=== PATIENT | male | born 1945 | race Caucasian/White ===

== ENCOUNTER → 2022-07-14 | Emergency (ER) | payer OTHER ==
[~2022-07-14] MED LIST: ASPIRIN 325 MG TABLET ONE; ASPIRIN 325 MG TABLET PO ONE; FUROSEMIDE 40 MG/4 ML INJECTABLE VIAL IVPUSH ONE; FUROSEMIDE 40 MG/4 ML INJECTABLE VIAL ONE; MAGNESIUM SULF 50% (8.12 MEQ/2 ML-1 GM VIAL) IVPB ONE; MAGNESIUM SULFATE IN WATER 2 GM/50 ML IVPB IVPB ONE
[2022-07-14 19:07] LABS: HEMOGLOBIN 14.7 G/dL (11.7-16.9); MCH 27.3 pg (25.7-33.7); MCHC 33.4 g/dl (32.0-35.9); MEAN CELL VOLUME 81.7 fl (80-96); MEAN PLT VOLUME 10.5 fl (7.5-11.1); PLATELET COUNT 225.1 10^3/uL (134-434); RBC 5.38 10^6/uL (4.00-5.60); RDW 18.4 % (11.9-15.9)
[2022-07-14 19:09] VITALS: BMI 41.8
[2022-07-14 19:15] LABS: INR 1.58 (0.83-1.09); PROTHROMBIN TIME (PATIENT) 18.3 SEC (9.7-13.0)
[2022-07-14 19:22] LABS: ALBUMIN 3.3 g/dl (3.4-5.0); BILIRUBIN,TOTAL 2.1 mg/dl (0.2-1); CALCIUM 9.3 mg/dl (8.5-10); CREATININE 1.2 mg/dl (0.55-1.3); TOT PROT 6.4 g/dl (6.4-8.2)
[2022-07-14 19:31] LABS: PLATELET ESTIMATE ADEQUATE
[2022-07-15 00:26] VITALS: RESP 20
[2022-07-15 03:22] VITALS: BP 157/119; PULSE 120; TEMP 97.8
== END | disposition short-term general hospital (02) ==
LOC: FER 17:58
PROC: 3E033GC Introduction of Other Therapeutic Substance into Peripheral Vein, Percutaneous Approach (ICD-10-PCS; principal; 2022-07-14)
DX: I50.9 Heart failure, unspecified (principal)
CPT/HCPCS: 0241U-QW; 36415; 71046-TC-FY; 80053; 83880; 84484; 85027; 85610; 93005; 99285-25

== ENCOUNTER 2024-05-21 10:37 | Inpatient (IN) | payer OTHER ==
[2024-05-21] MEDS: SODIUM CHLORIDE 1,000 ML IV SCH (11:10)
[2024-05-21 11:35] LABS: INR 1.25 (0.83-1.09); PROTHROMBIN TIME (PATIENT) 14.2 SEC (9.7-13.0)
[2024-05-21 11:51] LABS: ALBUMIN 4.1 g/dl (3.4-5.0); BILIRUBIN,TOTAL 1.1 mg/dl (0.2-1); CALCIUM 9.5 mg/dl (8.5-10.1); CREATININE 0.9 mg/dl (0.6-1.3); POTASSIUM 3.7 mmol/L (3.5-5.1); TOT PROT 6.5 g/dl (6.4-8.2)
[2024-05-21] MEDS: ASPIRIN 81 MG CHEWABLE TABLETS PO ONE ×2 (13:24→14:01)
[2024-05-21 13:30] LABS: HEMATOCRIT 42.4 % (35.4-49); HEMOGLOBIN 14.3 G/dL (11.7-16.9); MCH 28.6 pg (25.7-33.7); MCHC 33.8 g/dl (32.0-35.9); MEAN CELL VOLUME 84.6 fl (80-96); MEAN PLT VOLUME 10.5 fl (7.5-11.1); PLATELET COUNT 134.5 10^3/uL (134-434); RBC 5.01 10^6/uL (4.00-5.60); RDW 14.5 % (11.9-15.9); WHITE BLOOD COUNT 7.7 10^3/uL (4.0-10.8)
[2024-05-21 13:53] LABS: CHOLESTEROL 148 mg/dL (50-200); HDL CHOLESTEROL 35 mg/dL (40-60); LDL CHOLESTEROL (ONLY DFH) 77 mg/dL (5-100)
[2024-05-21] MEDS ORDERED: ASPIRIN 81 MG CHEWABLE TABLETS ONE (13:54)
[2024-05-21 14:06] LABS: HIV INTERPRETATION NEGATIVE (NEGATIVE)
[2024-05-21 14:15] LABS: PLATELET ESTIMATE ADEQUATE
[2024-05-21 16:00] VITALS: BMI 34.3
[2024-05-21 18:34] VITALS: RESP 18
[2024-05-21] MEDS: INSULIN ASPART SLIDING SCALE (NOVOLOG) 1 VIAL SQ SCH (19:15)
[2024-05-21] MEDS: CARVEDILOL 25 MG TABLET (FP) PO SCH (22:46)
[2024-05-21] MEDS: ATORVASTATIN CA 80 MG TABLET (FP) PO SCH (22:46)
[2024-05-21] MEDS: SACUBITRIL/VALSARTAN 97 MG-103 MG TABLET PO SCH (22:47)
[2024-05-22 03:20] LABS: PH,URINE 6.5 (5.0-8.0); URINE APPEARANCE CLEAR; URINE BILIRUBIN NEGATIVE (NEGATIVE); URINE COLOR YELLOW; URINE GLUCOSE (UA) 3+ (NEGATIVE); URINE KETONE NEGATIVE (NEGATIVE); URINE LEUK ESTERASE NEGATIVE (NEGATIVE); URINE NITRITE NEGATIVE (NEGATIVE); URINE PROTEIN NEGATIVE (NEGATIVE)
[2024-05-22 05:01] VITALS: BP 129/80; PULSE 59; TEMP 97.9
[2024-05-22] MEDS ORDERED: EMPAGLIFLOZIN (JARDIANCE) 10 MG TABLET PO SCH (10:00)
[2024-05-22] MEDS: TAMSULOSIN HCL 0.4 MG CAP PO SCH (10:44)
[2024-05-22] MEDS: CLOPIDOGREL BISULFATE 75 MG TABLET (FP) PO SCH (10:45)
== END 2024-05-22 12:19 | disposition left against medical advice (07) | DRG 66 ==
LOC: JER 10:37 → FER 10:37 → JERBED 13:52 → J4W 14:54
PROVIDERS: ADMIT Internal Medicine
DX: I63.89 Other cerebral infarction (principal); I25.10 Atherosclerotic heart disease of native coronary artery without angina pectoris; I10 Essential (primary) hypertension; R29.702 NIHSS score 2; I44.5 Left posterior fascicular block; R47.81 Slurred speech; I51.7 Cardiomegaly; I73.9 Peripheral vascular disease, unspecified; Z95.2 Presence of prosthetic heart valve
CPT/HCPCS: 36415; 70450-TC; 70496-TC; 70498-TC; 70551-TC; 71045-TC-FY; 80053; 80061; 81003; 82550; 82962; 83036; 84484; 85027; 85610; 85730; 86803; 86850; 86900; 86901; 87389; 93005; 93306-TC; 93880-TC; 97116-GP; 97161-GP; 99285-25